=== PATIENT | male | born 1965 | race Caucasian/White ===

== ENCOUNTER 2018-01-16 09:58 | Emergency (ER) | payer MEDICARE, MEDICAID ==
[~2018-01-16] VITALS: Ht 182.9 cm; Wt 88.0 kg
[~2018-01-16 09:58] MED LIST: ONDA4TAB59 PO
[2018-01-16 11:24] LABS: BASOPHILS % (AUTO) 0.2 % (0-1); EOSINOPHILS % (AUTO) 0.2 % (0-6); HEMATOCRIT 46.2 % (42.0-52.0); HEMOGLOBIN 15.8 g/dl (14.0-17.9); LYMPHOCYTES # (AUTO) 0.7 X10'3 (1.1-4.8); LYMPHOCYTES % (AUTO) 12.1 % (21-51); MEAN CORPUSCULAR HEMOGLOBIN 29.6 PG (27.0-31.0); MEAN CORPUSCULAR HGB CONC 34.3 % (33.0-36.5); MEAN CORPUSCULAR VOLUME 86.3 FL (78-98); MEAN PLATELET VOLUME 8.5 FL (7.4-10.4); MONOCYTES # (AUTO) 0.6 X10'3 (0-0.9); MONOCYTES % (AUTO) 10.5 % (2-12); NEUTROPHILS # (AUTO) 4.1 X10'3 (1.8-7.7); PLATELET COUNT 206 X10'3 (140-440); RED BLOOD COUNT 5.35 X10'6 (4.70-6.10); RED CELL DISTRIBUTION WIDTH 12.9 % (11.5-14.5); WHITE BLOOD COUNT 5.4 X10'3 (4.5-11.0)
[2018-01-16] MEDS ORDERED: acetaminophen 325mg tablet PO ONE (11:25)
[2018-01-16] MEDS ORDERED: ketorolac tromethamine 15mg/ml inj. IV ONE (11:25)
[2018-01-16] MEDS ORDERED: ondansetron/PF 4mg/2ml inj IV ONE (11:25)
[2018-01-16] MEDS ORDERED: normal saline 1000ML IV soln IVB ONE (11:25)
[2018-01-16 11:35] LABS: PARTIAL THROMBOPLASTIN TIME 28 SECONDS (22-32); PROTHROMBIN TIME 10.1 SECONDS (9.0-12.0)
[2018-01-16 11:48] LABS: ALANINE AMINOTRANSFERASE 37 U/L (12-78); ALBUMIN 4.4 G/DL (3.4-5.0); ALBUMIN/GLOBULIN RATIO 1.7 (1.1-1.5); ALKALINE PHOSPHATASE 47 IU/L (46-116); ANION GAP 12 (8-16); ASPARTATE AMINO TRANSFERASE 25 U/L (10-37); BILIRUBIN,TOTAL 0.9 MG/DL (0.1-1.0); BLOOD UREA NITROGEN 11 MG/DL (7-18); BUN/CREATININE RATIO 9.8 (5.4-32.0); CALCIUM 8.6 MG/DL (8.5-10.1); CHLORIDE 101 MMOL/L (99-107); CREATININE 1.12 MG/DL (0.60-1.10); GLUCOSE 150 MG/DL (70-104); POTASSIUM 3.5 MMOL/L (3.5-5.1); SODIUM 137 MMOL/L (135-145); TOTAL CARBON DIOXIDE 24.4 MMOL/L (24-32); eGFR 69 ML/MIN
[2018-01-16 12:48] LABS: CLARITY,URINE Clear (Clear); COLOR,URINE Yellow (Yellow); GLUCOSE, URINE Negative (Neg); KETONES,URINE 15 mg/dl (Neg); LEUKOCYTE ESTERASE ,URINE Negative (Neg); NITRITES, URINE Negative (Neg); OCCULT BLOOD,URINE Negative (Neg); PROTEIN,URINE Negative (Neg)
[2018-01-16 12:50] LABS: UA COLLECTION TYPE CLN CATCH MIDSTREAM
[2018-01-16] MEDS ORDERED: ONDA4TAB9 SL (13:01)
[2018-01-16 13:21] VITALS: BP 110/56
== END 2018-01-16 13:55 | disposition home or self-care (01) ==
LOC: ER 09:58
DX: E86.0 Dehydration (principal); J10.1 Influenza due to other identified influenza virus with other respiratory manifestations; M06.9 Rheumatoid arthritis, unspecified; G89.29 Other chronic pain; Z88.8 Allergy status to other drugs, medicaments and biological substances
CPT/HCPCS: 36415; 71045; 80053; 81003; 83605; 84145; 85025; 85610; 85730; 87040; 87502; 87503; 96361; 96374; 96375; 99285; J1885; J2405; J7030

== ENCOUNTER 2020-10-31 15:43 | Emergency (ER) | payer MEDICARE, MEDICAID ==
[~2020-10-31] VITALS: Ht 182.9 cm; Wt 90.5 kg
--- NOTE | 2020-10-31 16:12 | NUR ---
pt came in for neck pain has been trying to get to a ENT but has not been able to he has some swelling in his glands bilateral neck but more swelling on the L side and the swelling goes around to the side of his neck and that is where he is having most of his pain has constant pain but increases with movement
[2020-10-31 17:01] LABS: BASOPHILS # (AUTO) 0.1 X10'3 (0-0.2); BASOPHILS % (AUTO) 1.3 % (0-1); EOSINOPHILS # (AUTO) 0.4 X10'3 (0-0.9); EOSINOPHILS % (AUTO) 3.6 % (0-6); HEMATOCRIT 44.5 % (42.0-52.0); HEMOGLOBIN 15.5 g/dl (14.0-17.9); LYMPHOCYTES # (AUTO) 1.9 X10'3 (1.1-4.8); LYMPHOCYTES % (AUTO) 18.3 % (21-51); MEAN CORPUSCULAR HEMOGLOBIN 29.8 PG (27.0-31.0); MEAN CORPUSCULAR HGB CONC 34.7 g/dL (33.0-36.5); MEAN CORPUSCULAR VOLUME 85.8 FL (78-98); MEAN PLATELET VOLUME 7.8 FL (7.4-10.4); MONOCYTES # (AUTO) 1.1 X10'3 (0-0.9); MONOCYTES % (AUTO) 10.4 % (2-12); NEUTROPHILS # (AUTO) 6.9 X10'3 (1.8-7.7); NEUTROPHILS % (AUTO) 66.4 % (42-75); PLATELET COUNT 297 X10'3 (140-440); RED BLOOD COUNT 5.19 X10'6 (4.70-6.10); RED CELL DISTRIBUTION WIDTH 14.1 % (11.5-14.5); WHITE BLOOD COUNT 10.5 X10'3 (4.5-11.0)
[2020-10-31] MEDS ORDERED: iohexol 300mg/ml 100ml inj. ONE (17:05)
[2020-10-31 17:06] LABS: ALBUMIN 4.1 G/DL (3.4-5.0); ANION GAP 8 (8-16); BLOOD UREA NITROGEN 12 MG/DL (7-18); CALCIUM 9.2 MG/DL (8.5-10.1); CHLORIDE 105 MMOL/L (99-107); CREATININE 0.92 MG/DL (0.60-1.10); GLUCOSE 170 MG/DL (70-104); POTASSIUM 4.1 MMOL/L (3.5-5.1); SODIUM 140 MMOL/L (135-145); TOTAL CARBON DIOXIDE 27.2 MMOL/L (24-32); eGFR 85 ML/MIN
[2020-10-31 17:44] VITALS: BP 148/92
== END 2020-10-31 18:20 | disposition home or self-care (01) ==
LOC: ER 15:43
DX: K11.6 Mucocele of salivary gland (principal); G89.29 Other chronic pain; Z98.890 Other specified postprocedural states; Z88.8 Allergy status to other drugs, medicaments and biological substances; Z79.899 Other long term (current) drug therapy
CPT/HCPCS: 36415; 70491; 80048; 85025; 99285; Q9967

== ENCOUNTER 2020-11-25 12:01 | Day surgery (SDC) | payer MEDICARE, MEDICAID ==
[~2020-11-25] VITALS: Ht 182.9 cm; Wt 91.5 kg
[2020-11-25] MEDS ORDERED: METH2.5T55 PO (12:55)
[2020-11-25] MEDS ORDERED: [UNRECOGNIZED DRUG - CODE] PO (12:55)
[2020-11-25] MEDS ORDERED: HYDR-3972 PO (12:55)
[2020-11-25] MEDS ORDERED: MELO-100 PO (12:55)
[2020-11-25] MEDS ORDERED: DOCU-22 PO (12:55)
[2020-11-25] MEDS ORDERED: OMEP-50 PO (12:55)
[2020-11-25] MEDS ORDERED: ACET-1 PO (12:55)
[2020-11-25 13:00] VITALS: BP 157/90
== END 2020-11-25 13:30 | disposition home or self-care (01) ==
LOC: SSTAY O 12:01
PROVIDERS: ATTEND Radiology Diagnostic Radiology
DX: R59.0 Localized enlarged lymph nodes (principal); C96.9 Malignant neoplasm of lymphoid, hematopoietic and related tissue, unspecified; G89.29 Other chronic pain; Z87.11 Personal history of peptic ulcer disease; Z88.8 Allergy status to other drugs, medicaments and biological substances; Z20.828 Contact with and (suspected) exposure to other viral communicable diseases
CPT/HCPCS: 36415; 38505; 76942; 87635

== ENCOUNTER 2021-01-11 11:03 | Day surgery (SDC) | payer MEDICARE, MEDICAID ==
[~2021-01-11] VITALS: Ht 188 cm; Wt 90.9 kg
[~2021-01-11 11:03] MED LIST changes: +ACET-1 PO; +DOCU-22 PO; +HYDR-3972 PO; +MELO-100 PO; +METH2.5T55 PO; +OMEP-50 PO; -ONDA4TAB59 PO; +[UNRECOGNIZED DRUG - CODE] PO
[2021-01-11] MEDS ORDERED: normal saline 1000ml 1,000 ML IV SCH ×2 (11:30→13:30)
[2021-01-11 11:39] VITALS: BP 148/86
[2021-01-11] MEDS ORDERED: FOLIC ACID PO (11:46)
[2021-01-11] MEDS ORDERED: heparin sodium, porcine/PF 100unit/ml 5ML syringe ONE (13:05)
[2021-01-11] MEDS ORDERED: LIDOcaine 1%/PF 5ML 10 MG/ML VIAL ONE (13:05)
[2021-01-11] MEDS ORDERED: midazolam 2 mg/2 ml injection ONE (13:48)
[2021-01-11] MEDS ORDERED: fentaNYL/PF 50MCG/1 ML 2ML syringe ONE ×2 (13:49→14:11)
[2021-01-11 14:34] VITALS: BP 158/97
[2021-01-11 14:49] VITALS: BP 150/86
[2021-01-11 15:03] VITALS: BP 131/81
[2021-01-11 15:18] VITALS: BP 135/74
== END 2021-01-11 15:45 | disposition home or self-care (01) ==
LOC: SSTAY O 11:03
PROVIDERS: ATTEND Radiology Diagnostic Radiology
DX: C76.0 Malignant neoplasm of head, face and neck (principal); Z20.822 Contact with and (suspected) exposure to COVID-19
CPT/HCPCS: 36561; 76937; 87635; 99152; 99153; C1769; C1788; C1894; C9803; J1642; J2250; J3010

== ENCOUNTER 2025-05-04 14:27 | Outpatient (CLI) | payer MEDICARE, MEDICAID ==
[~2025-05-04 14:27] MED LIST changes: -ACET-1 PO; +FOLIC ACID PO; -OMEP-50 PO; +OMEP20CA16 PO; -[UNRECOGNIZED DRUG - CODE] PO
--- NOTE | 2025-05-04 15:43 | RADIOLOGY REPORT ---
Exam: US ULTRASOUND HEAD NECK Date: 05/04/2025 02:46 PM Clinical History: LOCALIZED SWELLING, MASS AND LUMP, NECK Comparison: None Findings: Targeted sonographic evaluation of the soft tissues of the right neck was obtained utilizing graysca le and color Doppler imaging. 1 x 0.25 cm x 0.94 hypoechoic subcutaneous lesion right neck. IMPRESSION: 1 x 0.25 cm x 0.94 hypoechoic subcutaneous lesion right neck. Sebaceous cyst is most likely END IMPRESSION:
== END 2025-05-04 23:59 | disposition home or self-care (01) ==
LOC: RAD 14:27
PROVIDERS: ATTEND Nurse Practitioner
DX: R22.1 Localized swelling, mass and lump, neck (principal)
CPT/HCPCS: 76536